=== PATIENT | male | born 1940 | race Caucasian/White ===

== ENCOUNTER 2019-03-25 19:16 | Emergency (ER) | payer MEDICARE, OTHER ==
[~2019-03-25] VITALS: Ht 170.2 cm; Wt 69.8 kg
[2019-03-25] MEDS ORDERED: LISINOPRIL10 MG PO (19:39)
[2019-03-25] MEDS ORDERED: ASPIRIN EC81 MG PO (19:40)
[2019-03-25] MEDS ORDERED: LOVASTATIN40 MG PO (19:40)
[2019-03-25] MEDS ORDERED: CEPHALEXIN500 MG PO (20:30)
== END 2019-03-25 20:48 | disposition home or self-care (01) ==
LOC: ED 19:16
PROC: 0YQGXZZ Repair Left Knee Region, External Approach (ICD-10-PCS; principal; 2019-03-25)
DX: S81.012A Laceration without foreign body, left knee, initial encounter (principal); I10 Essential (primary) hypertension; Z87.891 Personal history of nicotine dependence; Z79.899 Other long term (current) drug therapy; W29.3XXA Contact with powered garden and outdoor hand tools and machinery, initial encounter
CPT/HCPCS: 12002; 90471; 90715; 99282-25